=== PATIENT | male | born 1965 | race Caucasian/White ===

== ENCOUNTER 2020-10-26 08:17 | Day surgery (SDC) | payer MEDICARE ==
[~2020-10-26] VITALS: Ht 182.9 cm; Wt 116.7 kg
[2020-10-26] MEDS ORDERED: HYDR2TAB29 PO (09:19)
[2020-10-26] MEDS ORDERED: CARV6.252 PO (09:19)
[2020-10-26] MEDS ORDERED: GABA600T7 PO (09:19)
[2020-10-26] MEDS ORDERED: FENOFIBRATE PO (09:19)
[2020-10-26] MEDS ORDERED: AMLODIPINE PO (09:19)
[2020-10-26] MEDS ORDERED: LISI-170 PO (09:19)
[2020-10-26] MEDS ORDERED: ATOR20TA37 PO (09:19)
[2020-10-26] MEDS ORDERED: CHLORHEXIDINE 15 ML UDC ONE (09:21)
[2020-10-26] MEDS ORDERED: LACTATED RINGERS 1,000 ML IV SCH (09:30)
[2020-10-26] MEDS ORDERED: CHLORHEXIDINE 15 ML UDC PO ONE (09:30)
[2020-10-26 09:41] VITALS: BP 142/80
[2020-10-26] MEDS ORDERED: FENTANYL PF 100 MCG/2ML IV PRN (10:00)
[2020-10-26] MEDS ORDERED: hydrALAzine 20 MG/ML, 1ML IV PRN (10:00)
[2020-10-26] MEDS ORDERED: PROMETHAZINE 25 MG/ML, 1ML IVPush PRN (10:00)
[2020-10-26] MEDS ORDERED: OXYcodone 5 MG/5 ML ORAL.SOL UDC PO PRN (10:00)
[2020-10-26] MEDS ORDERED: ONDANSETRON 2MG/ML, 2ML IVPush PRN (10:00)
[2020-10-26] MEDS ORDERED: ACETAMINOPHEN 325 MG TABLET PO PRN (10:00)
[2020-10-26] MEDS ORDERED: MEPERIDINE/PF 25MG/0.5ML IVPush PRN (10:00)
[2020-10-26] MEDS ORDERED: LABETALOL 5MG/ML, 20ML IV PRN (10:00)
[2020-10-26] MEDS ORDERED: MIDAZOLAM 1 MG/ML, 2ML ONE (10:03)
[2020-10-26] MEDS ORDERED: FENTANYL PF 250 MCG/5ML ONE (10:03)
[2020-10-26] MEDS ORDERED: ROCURONIUM 10MG/ML,5ML ONE (10:04)
[2020-10-26] MEDS ORDERED: EPINEPHRINE 1 MG/ML, 1ML ONE (10:12)
[2020-10-26] MEDS ORDERED: LIDOCAINE/PF 1%, 30ML ONE (10:12)
[2020-10-26] MEDS ORDERED: BUPIVACAINE/PF 0.5% ONE (10:12)
[2020-10-26 10:13] LABS: ALANINE AMINOTRANSFERASE 130 U/L (12-78); ALBUMIN 3.6 g/dL (3.4-5.0); ANION GAP 9 mmol/L (5-15); CALCIUM 8.9 mg/dL (8.5-10.1); CHLORIDE 110 mmol/L (98-107); CREATININE 1.01 mg/dL (0.7-1.3)
[2020-10-26 10:16] LABS: ALKALINE PHOSPHATASE 52 U/L (45-117); BILIRUBIN,TOTAL 0.6 mg/dL (0.2-1.0); TOTAL PROTEIN 7.1 g/dL (6.4-8.2)
[2020-10-26] MEDS ORDERED: CEFAZOLIN 1,000 MG ONE (10:34)
[2020-10-26] MEDS ORDERED: SUCCINYLCHOLINE 20 MG/ML, 10ML ONE (10:56)
[2020-10-26] MEDS ORDERED: PROPOFOL 10 MG/ML, 20ML ONE ×2 (10:56)
[2020-10-26] MEDS ORDERED: ONDANSETRON 2MG/ML, 2ML ONE (10:56)
[2020-10-26] MEDS ORDERED: ACETAMINOPHEN 650 MG/20.3 ML UDC ONE (11:45)
[2020-10-26] MEDS ORDERED: HYDROmorphone 1 MG/ML, 1ML INJ ONE ×2 (11:45→11:56)
[2020-10-26] MEDS ORDERED: OXYcodone 5 MG/5 ML ORAL.SOL UDC ONE (11:45)
[2020-10-26] MEDS: HYDROmorphone 1 MG/ML, 1ML INJ IVPush PRN ×4 (11:45→12:20)
[2020-10-26] MEDS ORDERED: KETOROLAC 30 MG/1 ML ONE (11:56)
[2020-10-26] MEDS ORDERED: KETOROLAC 30 MG/1 ML IVPush ONE (12:00)
== END 2020-10-26 13:55 | disposition home or self-care (01) ==
LOC: OUT 08:17
PROVIDERS: ATTEND Orthopaedic Surgery
DX: S92.351A Displaced fracture of fifth metatarsal bone, right foot, initial encounter for closed fracture (principal); Z20.822 Contact with and (suspected) exposure to COVID-19; Z79.899 Other long term (current) drug therapy; Z88.8 Allergy status to other drugs, medicaments and biological substances; X58.XXXA Exposure to other specified factors, initial encounter; Y93.89 Activity, other specified; Y92.89 Other specified places as the place of occurrence of the external cause; Y99.8 Other external cause status
CPT/HCPCS: 28485; 36415; 73620; 80053; 87635; C1713; J0330; J0690; J1170; J1885; J2250; J2405; J2704; J3010; 76000; J0171